=== PATIENT | female | born 1940 | race Caucasian/White ===

== ENCOUNTER 2020-02-04 08:28 | Emergency (ER) | payer MEDICARE, SELFPAY ==
[2020-02-04 08:40] VITALS: BP 187/76; PULSE 64; RESP 16; TEMP 36.9; O2SAT 98
--- NOTE | 2020-02-04 08:47 | ED.GENADULT ---
HPI - General Adult General Chief complaint: Wound/Laceration Stated complaint: right arm injury Time Seen by Provider: 02/04/20 08:48 Source: patient and RN notes reviewed Mode of arrival: ambulatory Limitations: no limitations History of Present Illness HPI narrative: 79-year-old female presents with complaints of several small open areas with intermittent drainage, redness, warmth, tenderness, and swelling to RT posterior arm for the past 14 days. 48-72 days ago with nodule and then redness and warmth. Snow says she was working in the yard about 3 weeks ago and was poked in the arm with a janeen barbed wire. Called her PMD instructed to keep clean, watch for signs of infection, and tetanus is up-to-date, last 2017. Peroxide cleaning, Neosporin ointment, and cold compresses without relief. Denies radiation of tenderness, redness, or swelling. No exacerbating factor. Denies arm pain. Denies fever or chills. Denies diarrhea, nausea, vomiting, and abdominal pain. Denies headaches, weakness, fatigue, myalgia. Denies chest pain or dyspnea. Denies cough, rhinorrhea, congestion, and sore throat. Denies recent traveling. Denies concern for COVID-19 or exposures been home since [id number] order except for very limited essential household needs and return home. Some parts of this dictation were generated by voice recognition software and may contain typographical and/or grammatical inaccuracies. Related Data Home Medications Medication Instructions Recorded Confirmed atorvastatin 20 mg PO DAILY 02/04/20 02/04/20 hydrocodone-acetaminophen 1 tablet PO DIRECTED 02/04/20 02/04/20 lisinopril-hydrochlorothiazide 1 tablet PO DAILY 02/04/20 02/04/20 metoprolol tartrate 25 mg PO DAILY 02/04/20 02/04/20 Allergies Allergy/AdvReac Type Severity Reaction Status Date / Time adhesive Allergy Unknown Redness of Unverified 02/04/20 08:31 Skin Sulfa (Sulfonamide Allergy Unknown Rash Verified 02/04/20 08:31 Antibiotics) Wasp Allergy Unknown Other Uncoded 02/04/20 08:31 Review of Systems Review of Systems: Narrative: CONSTITUTIONAL: Denies fever, chills, sweats. EYES: Denies visual changes, redness, discharge. ENT: Denies rhinorrhea, congestion, sore throat, otalgia. CARDIOVASCULAR: Denies chest pain, palpitations, edema. RESPIRATORY: Denies dyspnea, wheezing, cough. GASTROINTESTINAL: Denies abdominal pain, nausea, vomiting, diarrhea. GENITOURINARY: Denies dysuria, hematuria, abnormal discharge. SKIN: Complains of redness, swelling, warmth, tenderness, open areas with intermittent drainage to RT posterior arm. MUSCULOSKELETAL: Denies acute back pain, joint pain, or myalgia. NEUROLOGIC: Denies numbness or focal weakness. PSYCHIATRIC: Denies anxiety or depression. All systems reviewed & are unremarkable except as noted in HPI and below PMFSH Past Medical History Medical History (Updated 02/04/20 @ 10:48 by SAMRA Calhoun) Anxiety Arthritis Fibromyalgia Hypercholesteremia Hypertension Myocardial infarction 2018 Pneumonia Surgical History Surgical History (Updated 02/04/20 @ 10:48 by SAMRA Calhoun) History of cardiac catheterization History of cholecystectomy History of coronary artery stent placement History of hysterectomy History of lumpectomy Hx of appendectomy Family History Family History Father Hypertension Mother Hypertension Sibling Hypertension Social History Social History (Updated 02/04/20 @ 10:49 by SAMRA Calhoun) Smoking status: Never smoker Second hand tobacco smoke exposure: No Alcohol intake: never Substance use: never Occupation/Education: retired Gender identity (if verbalized by the patient): Female Comments At time of signature, agree with nurse past medical, surgical, social, and family history. There is no relevant family history pertinent to the presenting complaint.
[2020-02-04 09:05] VITALS: BP 170/86
== END 2020-02-04 09:05 | disposition home or self-care (01) ==
PROVIDERS: Emergency Provider Nurse Practitioner Family; PCP Family Medicine
DX: L03.113 Cellulitis of right upper limb (principal); I10 Essential (primary) hypertension; M19.90 Unspecified osteoarthritis, unspecified site; M79.7 Fibromyalgia; I25.2 Old myocardial infarction; Z95.5 Presence of coronary angioplasty implant and graft
CPT/HCPCS: 99213; G0463

== ENCOUNTER 2020-06-03 09:54 | Emergency (ER) | payer MEDICARE, SELFPAY ==
--- NOTE | 2020-06-03 10:14 | ED.GENADULT ---
HPI - General Adult General Chief complaint: Skin/Abscess/Foreign Body Stated complaint: tick bite Time Seen by Provider: 06/03/20 10:14 Source: patient Mode of arrival: ambulatory Limitations: no limitations History of Present Illness HPI narrative: 79-year-old female patient presents to the [facility] with complaints of a tick bite to her left lower leg that she pulled out about 3 to 4 weeks ago. Patient states it is still a little red and feels like it is been a little bit swollen. Patient denies any body aches, chills, fevers. Denies any chest pain, shortness of breath. Denies any headaches. Denies any numbness or tingling to the lower extremities. Patient states she was told she should probably get it checked out because she did have a nephew that had a tick bite and developed Parker spotted fever. Related Data Home Medications Medication Instructions Recorded Confirmed atorvastatin 20 mg PO DAILY 02/04/20 06/03/20 lisinopril-hydrochlorothiazide 1 tablet PO DAILY 02/04/20 06/03/20 aspirin 81 mg tablet,delayed 81 mg PO DAILY 04/01/20 06/03/20 release loperamide 2 mg capsule 2 mg PO Q6H PRN 04/01/20 06/03/20 metoprolol tartrate 25 mg tablet 25 mg PO BID tablet 04/01/20 06/03/20 Allergies Allergy/AdvReac Type Severity Reaction Status Date / Time adhesive Allergy Unknown Redness of Verified 06/03/20 10:14 Skin Sulfa (Sulfonamide Allergy Unknown Rash Verified 06/03/20 10:14 Antibiotics) Wasp Allergy Unknown Other Uncoded 04/01/20 10:03 Review of Systems Review of Systems: Narrative: CONSTITUTIONAL: Denies fever, chills, or sweats. EYES: Denies visual changes, redness, or discharge. ENT: Denies rhinorrhea, congestion, sore throat, or otalgia. CARDIOVASCULAR: Denies chest pain, palpitations, or edema. RESPIRATORY: Denies cough or dyspnea. GASTROINTESTINAL: Denies abdominal pain, nausea, vomiting, or diarrhea. GENITOURINARY: Denies dysuria or hematuria. SKIN: Denies rash or itching. Positive tick bite to left lower extremity x3 to 4 weeks MUSCULOSKELETAL: Denies back pain, joint pain, or myalgia. NEUROLOGIC: Denies headache, numbness, or weakness. PSYCHIATRIC: Denies anxiety or depression. [facility] Past Medical History Medical History Anxiety CAD in [place] artery CKD (chronic kidney disease) stage 3, GFR 30-59 ml/min Dyslipidemia Essential (primary) hypertension Fibromyalgia Fibromyalgia muscle pain GERD without esophagitis Myocardial infarction 2017 Surgical History Surgical History History of cardiac catheterization History of cholecystectomy History of coronary artery stent placement 06/2017 - LAD History of hysterectomy 1996 History of lumpectomy Hx of appendectomy 1952 Family History Family History Father Hypertension Mother Hypertension Sibling Hypertension Social History Social History Smoking status: Never smoker Second hand tobacco smoke exposure: No Alcohol intake: never Substance use: never Gender identity (if verbalized by the patient): Female Comments At the time of my signature I agree with nursing past medical history, surgical, social, and family history. There is no relevant family history pertinent to the presenting complaint. At the time of my signature I agree with nursing past medical history, surgical, social, and family history. There is no relevant family history pertinent to the presenting complaint. Exam Narrative: Exam Narrative: GENERAL: Well-appearing, well-nourished, and in no acute distress. HEAD: Normocephalic, atraumatic. EYES: PERRLA and EOMI. ENT: Nares clear, no rhinorrhea or epistaxis. Mucous membranes moist. NECK: Supple. No lymphadenopathy CHEST: Clear to auscultation. No respiratory distress. HEART: Reg
== END 2020-06-03 10:25 | disposition home or self-care (01) ==
PROVIDERS: Emergency Provider Nurse Practitioner Family
DX: S80.862A Insect bite (nonvenomous), left lower leg, initial encounter (principal); W57.XXXA Bitten or stung by nonvenomous insect and other nonvenomous arthropods, initial encounter; I13.10 Hypertensive heart and chronic kidney disease without heart failure, with stage 1 through stage 4 chronic kidney disease, or unspecified chronic kidney disease; N18.3 Chronic kidney disease, stage 3 (moderate); I25.10 Atherosclerotic heart disease of native coronary artery without angina pectoris; E78.5 Hyperlipidemia, unspecified; K21.9 Gastro-esophageal reflux disease without esophagitis; M79.7 Fibromyalgia; I25.2 Old myocardial infarction; Z95.5 Presence of coronary angioplasty implant and graft
CPT/HCPCS: 99213; G0463

== ENCOUNTER 2022-03-24 09:45 | Emergency (ER) | payer MEDICARE, SELFPAY ==
[2022-03-24 09:53] VITALS: BP 129/63; PULSE 65; RESP 16; TEMP 36.3; O2SAT 99
--- NOTE | 2022-03-24 09:57 | ED.EXTPRO ---
HPI - Extremity Problem General Chief complaint: Extremity Injury, Lower Stated complaint: right foot poss gout Time Seen by Provider: 03/24/22 10:27 Source: patient and RN notes reviewed Mode of arrival: ambulatory Limitations: no limitations History of Present Illness HPI Narrative: 81-year-old female presents with concern for pain at the base of the first digit of her right foot. She reports pain started 3 days ago without injury or trauma. She reports redness, warmth. Reports its painful for the bedsheet to lay on her foot. She denies any other areas of pain in the foot. Denies any bruising, swelling. She denies fever, body aches, chills, sweats. Denies open skin, lacerations abrasions or rash. MD Complaint: extremity pain Related Data Home Medications Medication Instructions Recorded Confirmed aspirin 81 mg tablet,delayed 81 mg PO DAILY 04/01/20 03/24/22 release (Adult Low Dose Aspirin) metoprolol tartrate 25 mg tablet 25 mg PO BID 04/01/20 03/24/22 atorvastatin 20 mg tablet 80 mg PO QHS 06/03/21 03/24/22 ergocalciferol (vitamin D2) 1,250 1,250 mcg PO WEEKLY 03/24/22 03/24/22 mcg (50,000 unit) capsule (Vitamin D2) Allergies Allergy/AdvReac Type Severity Reaction Status Date / Time adhesive Allergy Unknown Redness of Verified 03/24/22 10:25 Skin Sulfa (Sulfonamide Allergy Unknown Nausea and Verified 03/24/22 10:25 Antibiotics) Vomiting Wasp Allergy Unknown Other Uncoded 12/02/21 10:02 Review of Systems Review of Systems: CONSTITUTIONAL: Denies malaise, chills, sweats, or fever. CARDIOVASCULAR: Denies chest pain, palpitations, or edema. RESPIRATORY: Denies cough or dyspnea. SKIN: Denies rash or itching, bruising, edema, swelling. MUSCULOSKELETAL: Reports pain, redness, warmth to the base of the first digit of the right foot NEUROLOGIC: Denies numbness, weakness All systems reviewed & are unremarkable except as noted in HPI and below PMFSH Past Medical History Medical History Anxiety CAD in [place] artery CKD (chronic kidney disease) stage 3, GFR 30-59 ml/min Dyslipidemia Essential (primary) hypertension Fibromyalgia Fibromyalgia muscle pain GERD without esophagitis Myocardial infarction 2018 Surgical History Surgical History History of cardiac catheterization (~07/15/17) History of cholecystectomy (~2007) History of coronary artery stent placement 06/2017 - LAD History of hysterectomy 1996 History of lumpectomy Hx of appendectomy 1952 Family History Family History Father Hypertension Mother Hypertension Sibling Hypertension Social History Social History Second hand tobacco smoke exposure: No Alcohol intake: never Substance use: never Gender identity (if verbalized by the patient): Female Comments At time of signature, agree with nursing past medical, surgical, social and family history. There is no relevant family history pertinent to the presenting complaint Exam Narrative: GENERAL: Well-appearing, well-nourished, and in no acute distress. HEAD: Normocephalic, atraumatic. EYES: PERRLA, conjunctivae clear, and EOMI. ENT: Mucous membranes moist. Oropharynx without edema, erythema or lesions. NECK: Supple. No lymphadenopathy CHEST: Clear to auscultation. No respiratory distress. HEART: Regular rate and rhythm. EXT: Erythema, warmth, tenderness noted to the base of the first digit of the right foot, no induration, edema, bruising noted. No other areas of point tenderness noted to the foot SKIN: Warm, dry, no rash NEURO: Alert and oriented x3. PSYCH: Normal mood and affect Course Course Emergency Course: Patient is aware of diagnosis, understands and agrees to treatment plan. Anticipatory guidance given. Patient agrees to foll
== END 2022-03-24 11:00 | disposition home or self-care (01) ==
PROVIDERS: Emergency Provider Nurse Practitioner; PCP Family Medicine
DX: M10.9 Gout, unspecified (principal); I25.10 Atherosclerotic heart disease of native coronary artery without angina pectoris; I12.9 Hypertensive chronic kidney disease with stage 1 through stage 4 chronic kidney disease, or unspecified chronic kidney disease; N18.30 Chronic kidney disease, stage 3 unspecified; E78.5 Hyperlipidemia, unspecified; M79.7 Fibromyalgia; K21.9 Gastro-esophageal reflux disease without esophagitis; I25.2 Old myocardial infarction; Z95.5 Presence of coronary angioplasty implant and graft
CPT/HCPCS: 99213; G0463

== ENCOUNTER 2022-07-30 07:55 | Outpatient (CLI) | payer MEDICARE, SELFPAY ==
--- NOTE | ~2022-07-30 | US_ITS ---
US renal BI 07/30/2022 08:30 Indication: Chronic renal disease stage III Procedure: High-resolution transabdominal renal ultrasound Comparison: No prior studies for comparison. Findings: Right kidney measures 9.9 cm in length. No hydronephrosis. Superiorly there is a 2.8 cm sim ple cyst. In the mid aspect of the right kidney there is a hypoechoic mass measuring 2.3 x 2 x 1.7 cm with low level internal echoes, most likely a hemorrhagic or proteinaceous cyst, although further ev aluation with contrast-enhanced CT or MRI recommended. Left renal echotexture is normal without hydro nephrosis, mass or stone. Bladder is unremarkable. Impression: 1: Complicated cyst mid aspect of the right kidney measuring 2.3 cm maximum dimension. Although this is likely a complicated cyst, further evaluation with contrast-enhanced CT or MRI recommended. Reviewed, dictated and finalized at location A. Impression: 1: Complicated cyst mid aspect of the right kidney measuring 2.3 cm maximum dim ension. Although this is likely a complicated cyst, further evaluation with con trast-enhanced CT or MRI recommended.
== END 2022-07-30 07:56 | disposition home or self-care (01) ==
PROVIDERS: PCP Family Medicine; Visit Provider Internal Medicine Nephrology
DX: I12.9 Hypertensive chronic kidney disease with stage 1 through stage 4 chronic kidney disease, or unspecified chronic kidney disease (principal); N18.32 Chronic kidney disease, stage 3b; E78.1 Pure hyperglyceridemia; M10.071 Idiopathic gout, right ankle and foot; N28.1 Cyst of kidney, acquired
CPT/HCPCS: 76775

== ENCOUNTER 2022-08-10 07:58 | Outpatient (CLI) | payer MEDICARE, SELFPAY ==
--- NOTE | ~2022-08-10 | CT_ITS ---
EXAMINATION: CT abdomen pelvis w con DATE: 08/10/2022 08:29 INDICATION: Renal cyst. TECHNIQUE: Computed tomography (CT) of the abdomen and pelvis was performed with 100 mL Omnipaque 350 intravenous contrast. Automated exposure control and iterative reconstruction technique were employe d. The dose-length product was 1058.38 mGy-cm. COMPARISON: Ultrasound kidneys 07/30/2022 FINDINGS: The visualized portions of the lung bases demonstrate small pleural effusions. There is smo oth septal thickening, consistent with mild pulmonary edema. Cardiomegaly is noted. There is subendoc ardial fat in left ventricular apex and apical segments, consistent with old infarct. There are coron minerva artery calcifications. No pericardial effusion. Calcifications in the liver and spleen are consis tent with old granulomatous disease. There are changes of cholecystectomy. The pancreas and adrenal g lands are normal. There is cortical thinning of the kidneys. There are cysts in the kidneys measuring up to 2.9 cm on the right. There is a 2.5 cm mass in right kidney with attenuation of 25 HU, likely a hemorrhagic cyst. There is diverticulosis of the colon without evidence of diverticulitis. The appe ndix is not visualized. There are no dilated loops of bowel. There is an umbilical hernia containing fat. There is a supraumbilical ventral hernia containing fat. There is moderate lumbar spondylosis. T here are hemangiomas in T12 and L1 vertebral bodies. IMPRESSION: 1. 2.5 cm hemorrhagic cyst in right kidney correlating with the ultrasound abnormality. 2. Small pleural effusions. 3. Mild pulmonary edema. Reviewed, dictated and finalized at location A. IMPRESSION: 1. 2.5 cm hemorrhagic cyst in right kidney correlating with the ultrasound abno rmality. 2. Small pleural effusions. 3. Mild pulmonary edema.
[2022-08-10 08:22] LABS: Estimated Glomerular Filt Rate 47
== END 2022-08-10 07:59 | disposition home or self-care (01) ==
PROVIDERS: PCP Family Medicine; Visit Provider Internal Medicine Nephrology
DX: N28.1 Cyst of kidney, acquired (principal); J90 Pleural effusion, not elsewhere classified; J81.1 Chronic pulmonary edema
CPT/HCPCS: 74177; Q9967

== ENCOUNTER 2023-03-28 18:36 | Emergency (ER) | payer MEDICARE, SELFPAY ==
[2023-03-28 18:41] VITALS: BP 174/75; PULSE 74; RESP 20; TEMP 37.2; O2SAT 98
--- NOTE | 2023-03-28 19:06 | ED.GENADULT ---
HPI - General Adult General Chief complaint: Epistaxis Stated complaint: Nose Bleed Source: patient Mode of arrival: ambulatory Limitations: no limitations History of Present Illness HPI narrative: Patient presents for evaluation of right-sided nose bleed. Symptom onset approximately 1 hour ago. She states she initially noted a few drops of blood from the right side of her nose and then it progressively worsened. By the time she arrived here her symptoms were nearly resolved. She had history of nosebleeds in childhood but none within the last few years. She is taking ASA 81mg daily but denies use of other blood thinners. Denies dizziness, nausea or near syncope. She does not smoke. Related Data Home Medications Medication Instructions Recorded Confirmed aspirin 81 mg tablet,delayed 81 mg PO DAILY 04/01/20 02/08/23 release (Adult Low Dose Aspirin) metoprolol tartrate 25 mg tablet 25 mg PO BID 04/01/20 02/08/23 acetaminophen 500 mg tablet 500 mg PO Q6H PRN 06/09/22 02/08/23 (Tylenol Extra Strength) loperamide 2 mg capsule (Imodium 2 mg PO Q6H PRN 06/09/22 02/08/23 A-D) atorvastatin 20 mg tablet 20 mg PO QHS 09/18/22 02/08/23 lisinopril 20 mg tablet 20 mg PO DAILY 09/18/22 02/08/23 Saccharomyces boulardii 250 mg 20,000 mmu cells PO DAILY 11/16/22 02/08/23 capsule (Daily Probiotic (S. boulardii)) potassium chloride 10 mEq 10 meq PO DAILY 12/15/22 02/08/23 tablet,extended release (Klor-Con) Allergies Allergy/AdvReac Type Severity Reaction Status Date / Time adhesive Allergy Unknown Redness of Verified 03/28/23 18:51 Skin Sulfa (Sulfonamide Allergy Unknown Nausea and Verified 03/28/23 18:51 Antibiotics) Vomiting Wasp Allergy Unknown Other Uncoded 03/28/23 18:51 Review of Systems Review of Systems: CONSTITUTIONAL: Denies fever, chills, or sweats. EYES: Denies visual changes, redness, or discharge. ENT: Reports right sided nosebleed. Denies rhinorrhea, congestion, sore throat, or otalgia. CARDIOVASCULAR: Denies chest pain, palpitations, or edema. RESPIRATORY: Denies cough or dyspnea. GASTROINTESTINAL: Denies abdominal pain, nausea, vomiting, or diarrhea. GENITOURINARY: Denies dysuria or hematuria. SKIN: Denies rash or itching. MUSCULOSKELETAL: Denies back pain, joint pain, or myalgia. NEUROLOGIC: Denies headache, numbness, dizziness, or weakness. PSYCHIATRIC: Denies anxiety or depression. PMFSH Past Medical History Medical History Anxiety CAD in [place] artery CKD (chronic kidney disease) stage 3, GFR 30-59 ml/min Dyslipidemia Essential (primary) hypertension Fibromyalgia Fibromyalgia muscle pain GERD without esophagitis Myocardial infarction 2018 Prediabetes Surgical History Surgical History History of cardiac catheterization (~07/15/17) History of cholecystectomy (~2007) History of coronary artery stent placement 06/2017 - LAD History of hysterectomy 1996 History of lumpectomy Hx of appendectomy 1952 Family History Family History Father Hypertension Mother Hypertension Sibling Hypertension Social History Social History Smoking status: Never smoker Second hand tobacco smoke exposure: No Alcohol intake: never Substance use: never Lack of Transportation: No Lack of Food: Never True Current Housing: I Have Housing Concerned About Future Housing: No Difficulty Paying Gas/Electric Bills: No Difficulty Paying for Meds: No Currently Unemployed: No Education: High School Diploma/GED Difficulty w/ Childcare or Family Care: No Occupation/Education: retired Gender identity (if verbalized by the patient): Female Exam Narrative: GENERAL: Well-appearing, well-nourished, and in no acute distress. H
== END 2023-03-28 19:35 | disposition home or self-care (01) ==
PROVIDERS: Emergency Provider Nurse Practitioner; PCP Family Medicine
DX: R04.0 Epistaxis (principal); M79.7 Fibromyalgia; K21.9 Gastro-esophageal reflux disease without esophagitis; I25.10 Atherosclerotic heart disease of native coronary artery without angina pectoris; I13.10 Hypertensive heart and chronic kidney disease without heart failure, with stage 1 through stage 4 chronic kidney disease, or unspecified chronic kidney disease; N18.30 Chronic kidney disease, stage 3 unspecified; R73.03 Prediabetes; E78.5 Hyperlipidemia, unspecified; Z95.5 Presence of coronary angioplasty implant and graft; Z79.82 Long term (current) use of aspirin
CPT/HCPCS: 99212; G0463

== ENCOUNTER 2023-03-29 08:35 | Emergency (ER) | payer MEDICARE, SELFPAY ==
[2023-03-29 08:38] VITALS: BP 156/71; PULSE 68; RESP 20; TEMP 36.7; O2SAT 97
--- NOTE | 2023-03-29 08:57 | ED.EPISTAXIS ---
HPI - Epistaxis General Chief complaint: Epistaxis Stated complaint: Nose Bleed History of Present Illness HPI Narrative: THIS IS AN 82-YEAR-OLD PATIENT THAT RETURNS TO THE URGENT CARE FOR RETURN OF NOSEBLEED. PATIENT WAS HERE LAST NIGHT FOR NOSE BLEED WHICH DID RESOLVE AND PATIENT WAS SENT HOME AND ADVISED TO GO TO THE EMERGENCY ROOM IF BLEEDING RETURNS. PATIENT STATES SHE GOT UP THIS MORNING AND BLEW HER NOSE AND REMOVED CLOTS IN HER NOSE AND HAD SOME BLEEDING AT HOME. PATIENT CALLED HER SON IN A PANIC AND HE BROUGHT HER INTO THE URGENT CARE FOR EVALUATION TREATMENT. UPON ARRIVAL TO THE URGENT CARE THE BLEEDING HAD SUBSIDED. PATIENT DENIES ANY DIZZINESS NO COUGH NO RUNNY NOSE. NO SHORTNESS OF BREATH AND NO CHEST PAIN. Related Data Home Medications Medication Instructions Recorded Confirmed aspirin 81 mg tablet,delayed 81 mg PO DAILY 04/01/20 03/29/23 release (Adult Low Dose Aspirin) metoprolol tartrate 25 mg tablet 25 mg PO BID 04/01/20 03/29/23 acetaminophen 500 mg tablet 500 mg PO Q6H PRN Pain, Mild 06/09/22 03/29/23 (Tylenol Extra Strength) loperamide 2 mg capsule (Imodium 2 mg PO Q6H PRN Diarrhea 06/09/22 03/29/23 A-D) atorvastatin 20 mg tablet 20 mg PO QHS 09/18/22 03/29/23 lisinopril 20 mg tablet 20 mg PO DAILY 09/18/22 03/29/23 Saccharomyces boulardii 250 mg 20,000 mmu cells PO DAILY 11/16/22 03/29/23 capsule (Daily Probiotic (S. boulardii)) potassium chloride 10 mEq 10 meq PO DAILY 12/15/22 03/29/23 tablet,extended release (Klor-Con) Allergies Allergy/AdvReac Type Severity Reaction Status Date / Time adhesive Allergy Unknown Redness of Verified 03/29/23 08:56 Skin Sulfa (Sulfonamide Allergy Unknown Nausea and Verified 03/29/23 08:56 Antibiotics) Vomiting Review of Systems Review of Systems: CONSTITUTIONAL: DENIES FEVER, CHILLS, OR SWEATS. EYES: DENIES VISUAL CHANGES, REDNESS, OR DISCHARGE. ENT: DENIES RHINORRHEA, CONGESTION, SORE THROAT, OR OTALGIA. CARDIOVASCULAR: DENIES CHEST PAIN, PALPITATIONS, OR EDEMA. RESPIRATORY: DENIES COUGH OR DYSPNEA. GASTROINTESTINAL: DENIES ABDOMINAL PAIN, NAUSEA, VOMITING, OR DIARRHEA. GENITOURINARY: DENIES DYSURIA OR HEMATURIA. SKIN: DENIES RASH OR ITCHING. MUSCULOSKELETAL: DENIES BACK PAIN, JOINT PAIN, OR MYALGIA. NEUROLOGIC: DENIES HEADACHE, NUMBNESS, OR WEAKNESS. PSYCHIATRIC: DENIES ANXIETY OR DEPRESSION. ENT: Reports epistaxis (NO ACTIVE BLEEDING AT THIS TIME RIGHT VÁSQUE[place] INFLAMED NO CLOTS VISUALIZED AND) [facility] Past Medical History Medical History Anxiety CAD in [place] artery CKD (chronic kidney disease) stage 3, GFR 30-59 ml/min Dyslipidemia Essential (primary) hypertension Fibromyalgia Fibromyalgia muscle pain GERD without esophagitis Myocardial infarction 2018 Prediabetes Surgical History Surgical History History of cardiac catheterization (~07/15/17) History of cholecystectomy (~2007) History of coronary artery stent placement 06/2017 - LAD History of hysterectomy 1996 History of lumpectomy Hx of appendectomy 1952 Family History Family History Father Hypertension Mother Hypertension Sibling Hypertension Social History Social History Smoking status: Never smoker Second hand tobacco smoke exposure: No Alcohol intake: never Substance use: never Lack of Transportation: No Lack of Food: Never True Current Housing: I Have Housing Concerned About Future Housing: No Difficulty Paying Gas/Electric Bills: No Difficulty Paying for Meds: No Currently Unemployed: No Education: High School Diploma/GED Difficulty w/ Childcare or Family Care: No Occupation/Education: retired Gender identity (if verbalized by the patient): Female Exam Narrative: Kimmy
== END 2023-03-29 09:05 | disposition home or self-care (01) ==
PROVIDERS: Emergency Provider Nurse Practitioner Family; PCP Family Medicine
DX: R04.0 Epistaxis (principal); I25.10 Atherosclerotic heart disease of native coronary artery without angina pectoris; E78.5 Hyperlipidemia, unspecified; M79.7 Fibromyalgia; K21.9 Gastro-esophageal reflux disease without esophagitis; I25.2 Old myocardial infarction; R73.03 Prediabetes; Z95.5 Presence of coronary angioplasty implant and graft; Z79.82 Long term (current) use of aspirin
CPT/HCPCS: 99212; G0463

== ENCOUNTER 2023-03-29 10:16 | Emergency (ER) | payer MEDICARE, SELFPAY ==
[2023-03-29] VITALS (12 sets, daily range): BP systolic 147–174; BP diastolic 74–100; PULSE 58–82; RESP 12–20; TEMP 36.3; O2SAT 94–100
--- NOTE | 2023-03-29 11:12 | ED.GENADULT ---
HPI - General Adult General Chief complaint: Epistaxis <Jose Gillespie PA-C - Last Filed: 03/29/23 15:09> Stated complaint: nosebleed/seen multiple times at urgent care <Jose Gillespie PA-C - Last Filed: 03/29/23 15:09> Time Seen by Provider: 03/29/23 10:53 <Jose Gillespie PA-C - Last Filed: 03/29/23 15:09> Source: patient <Jose Gillespie PA-C - Last Filed: 03/29/23 15:09> Mode of arrival: ambulatory <Jose Gillespie PA-C - Last Filed: 03/29/23 15:09> Limitations: no limitations <Jose Gillespie PA-C - Last Filed: 03/29/23 15:09> History of Present Illness HPI narrative: This is an 82-year-old female who presents to the ED with chief complaint of epistaxis x1 day. She reports 3 episodes of nosebleeding in the past 24 hours. States that she initially had some bleeding from the right side, saw an urgent care and then was sent home after the bleeding stopped. She states that today this happened again this morning where the nose started bleeding again. She then presented to the ER where her bleeding has subsequently stopped on my arrival to the room for the interview. Denies left-sided bleeding. She states she is on a baby aspirin only when asked about blood thinners. Denies headache, lightheadedness, any further complaints. <Jose Gillespie PA-C - Last Filed: 03/29/23 15:09> Related Data Home medications: Home Medications Medication Instructions Recorded Confirmed aspirin 81 mg tablet,delayed 81 mg PO DAILY 04/01/20 03/29/23 release (Adult Low Dose Aspirin) metoprolol tartrate 25 mg tablet 25 mg PO BID 04/01/20 03/29/23 acetaminophen 500 mg tablet 500 mg PO Q6H PRN Pain, Mild 06/09/22 03/29/23 (Tylenol Extra Strength) loperamide 2 mg capsule (Imodium 2 mg PO Q6H PRN Diarrhea 06/09/22 03/29/23 A-D) atorvastatin 20 mg tablet 20 mg PO QHS 09/18/22 03/29/23 lisinopril 20 mg tablet 20 mg PO DAILY 09/18/22 03/29/23 Saccharomyces boulardii 250 mg 20,000 mmu cells PO DAILY 11/16/22 03/29/23 capsule (Daily Probiotic (S. boulardii)) potassium chloride 10 mEq 10 meq PO DAILY 12/15/22 03/29/23 tablet,extended release (Klor-Con) <Jose Gillespie PA-C - Last Filed: 03/29/23 15:09> Allergies/adverse reactions: Allergies Allergy/AdvReac Type Severity Reaction Status Date / Time adhesive Allergy Unknown Redness of Verified 03/29/23 08:56 Skin Sulfa (Sulfonamide AdvReac Unknown Nausea and Verified 03/29/23 11:51 Antibiotics) Vomiting <Jose Gillespie PA-C - Last Filed: 03/29/23 15:09> Review of Systems Review of Systems: CONSTITUTIONAL: Denies fever, chills, or sweats. EYES: Denies visual changes, redness, or discharge. ENT: See HPI CARDIOVASCULAR: Denies chest pain, palpitations, or edema. RESPIRATORY: Denies cough or dyspnea. GASTROINTESTINAL: Denies abdominal pain, nausea, vomiting, or diarrhea. GENITOURINARY: Denies dysuria or hematuria. SKIN: Denies rash or itching. MUSCULOSKELETAL: Denies back pain, joint pain, or myalgia. NEUROLOGIC: Denies headache, numbness, dizziness, or weakness. PSYCHIATRIC: Denies anxiety or depression. <Jose Gillsepie PA-C - Last Filed: 03/29/23 15:09> [facility] Past Medical History Medical History: Medical History Anxiety CAD in [place] artery CKD (chronic kidney disease) stage 3, GFR 30-59 ml/min Dyslipidemia Essential (primary) hypertension Fibromyalgia Fibromyalgia muscle pain GERD without esophagitis Myocardial infarction 2018 Prediabetes <Jose Gillespie PA-C - Last Filed: 03/29/23 15:09> Surgical History Surgical History: Surgical History History of cardiac catheterization (~07/15/17) History of cholecystectomy (~2007) History of coronary artery stent placement 06/2017 - LAD History of hysterectomy 1996 History of lumpectomy Hx of appendectomy 1952 <SCOTT RyanC
[2023-03-29] MEDS: OXYMETAZOLINE HCL 0.05% NAS 15 ML BTL (*BKC) 1 SPRAY NASAL (12:06)
== END 2023-03-29 13:17 | disposition home or self-care (01) ==
PROVIDERS: Emergency Provider Physician Assistant; PCP Family Medicine
DX: R04.0 Epistaxis (principal); I25.10 Atherosclerotic heart disease of native coronary artery without angina pectoris; N18.30 Chronic kidney disease, stage 3 unspecified; E78.5 Hyperlipidemia, unspecified; I10 Essential (primary) hypertension; I25.2 Old myocardial infarction; M79.7 Fibromyalgia; K21.9 Gastro-esophageal reflux disease without esophagitis; R73.03 Prediabetes; Z90.49 Acquired absence of other specified parts of digestive tract; Z90.710 Acquired absence of both cervix and uterus; Z79.82 Long term (current) use of aspirin
CPT/HCPCS: 30901; 99283; A9270

== ENCOUNTER 2024-03-10 08:34 | Emergency (ER) | payer MEDICARE, SELFPAY ==
[2024-03-10 08:45] VITALS: BP 181/63; PULSE 61; RESP 18; TEMP 36.4; O2SAT 97
--- NOTE | 2024-03-10 09:01 | ED.GENADULT ---
HPI - General Adult General Chief complaint: Skin/Abscess/Foreign Body Stated complaint: Skin Sore/Right Arm Time Seen by Provider: 03/10/24 09:01 Source: patient Mode of arrival: ambulatory Limitations: no limitations History of Present Illness HPI narrative: 83 y/o female presented for c/o skin tear to right forearm sustained almost 2 weeks ago. States while snapping tree limbs one scraped the forearm. She was able to reattach the flap and had applied neosporin. Endorses itching recently around the site, and has applied benadryl cream. Denies swelling, pain, numbness, tingling or weakness. Related Data Home Medications Medication Instructions Recorded Confirmed aspirin 81 mg tablet,delayed 81 mg PO DAILY 04/01/20 03/10/24 release (Adult Low Dose Aspirin) atorvastatin 20 mg tablet 20 mg PO QHS 09/18/22 03/10/24 apixaban 2.5 mg tablet 2.5 mg PO BID 07/07/23 03/10/24 amiodarone 200 mg tablet 200 mg PO DAILY 03/10/24 03/10/24 Allergies Allergy/AdvReac Type Severity Reaction Status Date / Time adhesive Allergy Unknown Redness of Verified 03/10/24 09:05 Skin Sulfa (Sulfonamide AdvReac Unknown Nausea and Verified 03/10/24 09:05 Antibiotics) Vomiting Review of Systems Review of Systems: CONSTITUTIONAL: Denies body aches, fever, chills, or sweats. EYES: Denies visual changes, redness, or discharge. ENT: Denies rhinorrhea, congestion CARDIOVASCULAR: Denies chest pain, palpitations, or edema. RESPIRATORY: Denies cough or dyspnea. GASTROINTESTINAL: Denies abdominal pain, nausea, vomiting, or diarrhea. SKIN: reports skin tear right arm MUSCULOSKELETAL: Denies back pain, joint pain, or myalgia. NEUROLOGIC: Denies headache, numbness, tingling, or weakness. [facility] Past Medical History Medical History Anxiety CAD in [place] artery CKD (chronic kidney disease) stage 3, GFR 30-59 ml/min Dyslipidemia Essential (primary) hypertension Fibromyalgia Fibromyalgia muscle pain GERD without esophagitis Hypokalemia Myocardial infarction 2018 Prediabetes Surgical History Surgical History History of cardiac catheterization (~07/15/17) History of cholecystectomy (~2007) History of coronary artery stent placement 06/2017 - LAD History of hysterectomy 1996 History of lumpectomy Hx of appendectomy 1952 Family History Family History Father Hypertension Mother Hypertension Sibling Hypertension Social History Social History Social History: Caffeine- coffee Smoking status: Never smoker Second hand tobacco smoke exposure: No Alcohol intake: never Substance use: never Substance use type: does not use Lack of Transportation: No Lack of Food: Never True Current Housing: I Have Housing Concerned About Future Housing: No Difficulty Paying Gas/Electric Bills: No Difficulty Paying for Meds: No Currently Unemployed: No Education: High School Diploma/GED Difficulty w/ Childcare or Family Care: No Occupation/Education: retired Gender identity (if verbalized by the patient): Female Comments At time of signature, I have reviewed and agree with nursing past medical, surgical, social and family history unless otherwise noted. Please see nursing chart for further information. There is no relevant family history pertinent to the presenting complaint Exam Narrative: GENERAL: Well-appearing EYES: conjunctivae clear, and EOMI. ENT: Mucous membranes moist. Oropharynx without edema, erythema or lesions. NECK: Supple. No lymphadenopathy CHEST: Clear to auscultation. HEART: Regular rate and rhythm. SKIN: Warm, dry. No rash. Right forearm skin tear approx 0.5cm, flap had been replaced and healing well, mild surrounding erythema. Nontender, no warmth or fluctuance
== END 2024-03-10 09:17 | disposition home or self-care (01) ==
PROVIDERS: Emergency Provider Nurse Practitioner Family; PCP Family Medicine
DX: S51.801A Unspecified open wound of right forearm, initial encounter (principal); W22.8XXA Striking against or struck by other objects, initial encounter; I25.10 Atherosclerotic heart disease of native coronary artery without angina pectoris; I13.10 Hypertensive heart and chronic kidney disease without heart failure, with stage 1 through stage 4 chronic kidney disease, or unspecified chronic kidney disease; N18.30 Chronic kidney disease, stage 3 unspecified; E78.5 Hyperlipidemia, unspecified; M79.7 Fibromyalgia; I25.2 Old myocardial infarction; R73.03 Prediabetes; Z95.5 Presence of coronary angioplasty implant and graft; Z79.82 Long term (current) use of aspirin
CPT/HCPCS: 99213; G0463